=== PATIENT | male | born 1990 | race Caucasian/White ===

== ENCOUNTER 2022-02-24 11:49 | Emergency (ER) | payer BC ==
[2022-02-24] MEDS ORDERED: TRAM50TA3 PO (12:44)
[2022-02-24] MEDS ORDERED: CYCL10TA25 PO (12:44)
--- NOTE | 2022-02-24 12:46 | ED Back Pain ---
General Chief Complaint: Back Problems Stated Complaint: BACK PAIN Nursing Triage Note: Patient presents to the ED with c/o left lower back pain. Reports he was moving heaving items yesterday and a couple hours after that he started having pain. Has taken Ibuprofen, Aleve, and Tylenol with last dose yesterday evening. Reports pain is worse with movement and breathing. Source of Information: Patient Exam Limitations: No Limitations History of Present Illness Date Seen by Provider: Feb 24, 2022 Time Seen by Provider: 12:00 Initial Comments Patient is a 31-year-old male presents with acute left lower lumbar back pain after lifting a heavy item yesterday at home. Pain sharp rated moderate to severe worse with palpation and movement and started 2 hours after lifting occurred. Pain is nonradiating. Denies extremity weakness or loss of sensation. No loss of bowel or bladder function. 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 No other symptoms or complaints Location: Lumbar Spine, Paraspinous Muscles Timing/Duration: 12 Hours Severity: Moderate Radiation: Other Method of Injury: Other Modifying Factors: Improves With Other Associated Symptoms: other Allergies and Home Medications Allergies Coded Allergies: No Known Drug Allergies (Unverified , 02/24/22) Patient Home Medication List Home Medication List Reviewed: Yes Review of Systems Constitutional: see HPI EENTM: see HPI Respiratory: see HPI Cardiovascular: see HPI Gastrointestinal: see HPI Genitourinary: see HPI Musculoskeletal: see HPI Skin: see HPI Psychiatric/Neurological: See HPI All Other Systems Reviewed Negative Unless Noted: No Past Rlmejyy-Utzsmj-[id number] Hx Patient Social History Tobacco Use?: Yes Tobacco type used: Cigarettes Smoking Status: Current Everyday Smoker Use of E-Cig and/or Vaping dev: No Substance use?: No Alcohol Use?: Yes Alcohol type: Beer Alcohol Frequency: Daily Pt feels they are or have been: No Past Medical History Surgery/Hospitalization HX: Left MCL repair Physical Exam Vital Signs Vital Signs - First Documented 02/24/22 12:02 Temp 36.2 Pulse 95 Resp 16 B/P (MAP) 161/59 (93) Pulse Ox 100 O2 Delivery Room Air Capillary Refill : Less Than 3 Seconds Height, Weight, BMI Height: '" Weight: lbs. oz. kg; BMI Method: General Appearance: WD/WN, Moderate Distress HEENT: PERRL/EOMI, Normal ENT Inspection, Pharynx Normal, Moist Mucous Membranes Neck: Full Range of Motion, Normal Inspection Cardiovascular: Regular Rate, Rhythm, No Edema Respiratory: Chest Non Tender, Lungs Clear Genital/Rectal: Normal Vaginal Exam Progress/Results/Core Measures Results/Orders Vital Signs/I&O 02/24/22 12:02 Temp 36.2 Pulse 95 Resp 16 B/P (MAP) 161/59 (93) Pulse Ox 100 O2 Delivery Room Air Blood Pressure Mean: 93 Departure Impression Primary Impression: Lumbar sprain Disposition: HOME, SELF-CARE Condition: Stable Admissions Decision to Admit/Date: Feb 24, 2022 Departure-Patient Inst. Decision time for Depature: 12:45 Referrals: NO,LOCAL PHYSICIAN (PCP) Primary Care Physician Patient Instructions: Back Muscle Strain (DC) Add. Discharge Instructions: Please avoid heavy lifting, strenuous physical activity take ibuprofen 600 mg 3 times daily newly prescribed medication as directed. Follow-up with your PCP in 3 to 5 days for reevaluation if your symptoms persist. Return to the ED if new or worsening symptoms All discharge instructions reviewed with patient and/or family. Voiced understanding. Scripts Cyclobenzaprine HCl (Cyclobenzaprine HCl) 10 Mg Tablet 10 MG PO TID, #30 TAB Prov: ANDREW LOUIS DO 02/24/22 Tramadol HCl (Tramadol HCl) 50 Mg Tablet 50-100 MG PO Q6H PRN for 12, #12 TAB Prov: ANDREW LOUIS DO 02/24/22 Work/School Note: Family Work Note Patient Received Medical Care In the Emergency Department On: Feb 26, 2022 Patient Will Be Able to Return to Work/School On: Feb 28, 2022 Patient Restrictions: Limit lifting and strenuous activity to as tolerated ANDREW LOUIS DO Feb 24, 2022 12:46
[2022-02-24 12:52] VITALS: BP 161/59
== END 2022-02-24 12:51 | disposition home or self-care (01) ==
LOC: ER FS 11:51
DX: S33.5XXA Sprain of ligaments of lumbar spine, initial encounter (principal); F17.210 Nicotine dependence, cigarettes, uncomplicated; Z28.310 Unvaccinated for COVID-19; X50.0XXA Overexertion from strenuous movement or load, initial encounter; Y92.009 Unspecified place in unspecified non-institutional (private) residence as the place of occurrence of the external cause
CPT/HCPCS: 99281